=== PATIENT | female | born 1970 | race Caucasian/White ===

== ENCOUNTER 2016-08-22 23:26 | Emergency (ER) | payer BC ==
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
[2016-08-22 23:37] VITALS: BP 137/95; PULSE 82; TEMP 97.7; BMI 43.9
[2016-08-22 23:41] LABS: URINE APPEARANCE Clear; URINE BILIRUBIN Negative (NEGATIVE); URINE BLOOD Negative (NEGATIVE); URINE GLUCOSE (UA) Negative (NEGATIVE); URINE KETONE Negative (NEGATIVE); URINE LEUK ESTERASE Negative (NEGATIVE); URINE NITRITE Negative (NEGATIVE); URINE UROBILINOGEN 0.2 E.U/dl (0.2-1.0)
[2016-08-22 23:42] LABS: URINE COLOR YELLOW; URINE PROTEIN 2+ (NEGATIVE)
[2016-08-22 23:45] LABS: URINE BACTERIA FEW /hpf (NEGATIVE); URINE RBC 0-2 /hpf (0-3); URINE WBC 0-1 (3-5)
[2016-08-23] MEDS ORDERED: KETOROLAC TROMETHAMINE 60 MG/2 ML VIAL ONE (00:40)
[2016-08-23] MEDS ORDERED: KETOROLAC TROMETHAMINE 60 MG/2 ML VIAL IM ONE (00:42)
== END 2016-08-23 00:50 | disposition home or self-care (01) ==
LOC: FER 23:26
DX: S60.221A Contusion of right hand, initial encounter (principal); S80.01XA Contusion of right knee, initial encounter; V43.02XA Car driver injured in collision with other type car in nontraffic accident, initial encounter; Y93.89 Activity, other specified; Y92.410 Unspecified street and highway as the place of occurrence of the external cause; D86.9 Sarcoidosis, unspecified
CPT/HCPCS: 73130-TC-RT; 73562-TC-RT; 81003; 81015; 84703; 99281-25

== ENCOUNTER 2016-09-30 09:20 | Day surgery (SDC) | payer BC ==
[2016-09-29 10:22] VITALS: BMI 43.0
[2016-09-30] MEDS ORDERED: PROPOFOL 20 ML ONE ×2 (11:16)
[2016-09-30 11:57] VITALS: TEMP 97.5
[2016-09-30 12:39] VITALS: BP 112/74; PULSE 78
--- NOTE | 2016-10-03 12:13 | PATH ---
Surgical Pathology Report Patient Name: ANABEL CRAIG [facility]. Rec. #: [id number] /Age/Gender: 1970 (Age: 45) / F Account: [id number] Location: [facility]-ENDOSCOPY Taken: 09/30/2016 Received: 09/30/2016 Reported: 10/03/2016 Physicians: Amanda Hardy M.D. Specimen(s) Received BX RECTAL POLYPS Clinical History History of colon polyps, family history of colon cancer Polyps, diverticulosis Final Diagnosis RECTUM, POLYPS, POLYPECTOMY: HYPERPLASTIC POLYPS. Electronically Signed Charles Orellana M.D. Gross Description Received in formalin, labeled "biopsy rectal polyps" are 7 lawson, irregular portions of soft tissue ranging from 0.1-0.4 cm in greatest dimension. The specimens are submitted in toto in one cassette. 09/30/201609/30/2016
== END 2016-09-30 12:56 | disposition home or self-care (01) ==
LOC: JASU-ENDO 09:20
PROVIDERS: ATTEND Internal Medicine Gastroenterology
PROC: 0DBP8ZX Excision of Rectum, Via Natural or Artificial Opening Endoscopic, Diagnostic (ICD-10-PCS; principal; 2016-09-30 10:30)
DX: Z12.11 Encounter for screening for malignant neoplasm of colon (principal); Z80.0 Family history of malignant neoplasm of digestive organs; K62.1 Rectal polyp; K57.30 Diverticulosis of large intestine without perforation or abscess without bleeding; K64.8 Other hemorrhoids
CPT/HCPCS: 84703; 88305-TC

== ENCOUNTER 2017-06-15 10:52 | Emergency (ER) | payer BC ==
[2017-06-15 10:57] VITALS: BMI 43.7
--- NOTE | 2017-06-15 11:08 | PDOC ---
History of Present Illness <Diamante Morales - Last Filed: 06/15/17 16:06> - History of Present Illness Initial Comments: 06/15/17 11:07 46 yo F with h/o Sarcoidosis and diverticulosis who presents with chest pain . Patient reports left sided chest pain "pulling" pressure sensation of L sided chest with radiation to left shoulder beginning 2-3 days ago with associated exertional SOB. Yesterday developed productive cough with greenish sputum and transient episode of lightheadedness today, which prompted ED visit. Pain worse with deep inhalation. No N/V, fevers/chills, hemoptysis, diaphoresis, jaw pain, neck pain, LOC, weakness, abdominal pain, urinary complaints. Has been using friends albuterol because she ran out this summer. 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 PCP Dr. Cherelle Vail and currently no bag adjuster or treatment of Sarcoidosis. Last seen by Dr. Castellon 3 years ago. No h/o DVT/PE , no calf swelling/tenderness, no OCP, nor recent trauma or surgery within 6 weeks. Denies tobacco, alcohol, or illicit drug use. FHx cardiac disease. Stress test 1 year ago. <Rodney Dimas - Last Filed: 06/15/17 17:11> - General Chief Complaint: Chest Pain Stated Complaint: CHEST PAIN Time Seen by Provider: 06/15/17 11:03 Past History <Diamante Morales - Last Filed: 06/15/17 16:06> - Past Medical History Anemia: No Asthma: Yes (SCARCOIDOSIS) Cancer: No Cardiac Disorders: No CVA: No COPD: No CHF: No Dementia: No Diabetes: No GI Disorders: Yes (GASTRIC ULCERS, GASTRITIS, GERD, IBS, POLYPS) Disorders: No HTN: No Hypercholesterolemia: Yes Liver Disease: No Seizures: Yes Thyroid Disease: No - Surgical History Abdominal Surgery: Yes Cholecystectomy: Yes (LAP) Lung Surgery: Yes (biopsy) - Suicide/Smoking/Psychosocial Hx Smoking Status: No Smoking History: Former smoker Have you smoked in the past 12 months: No Number of Cigarettes Smoked Daily: 0 If you are a former smoker, when did you quit?: 1985 Information on smoking cessation initiated: No Hx Alcohol Use: Yes (RARE) Drug/Substance Use Hx: No Substance Use Type: None Hx Substance Use Treatment: No <Rodney Dimas - Last Filed: 06/15/17 17:11> - Past Medical History Allergies/Adverse Reactions: Allergies Allergy/AdvReac Type Severity Reaction Status Date / Time No Known Allergies Allergy Verified 06/15/17 10:54 Home Medications: Ambulatory Orders Albuterol Sulfate Inhaler - [Ventolin HFA Inhaler -] 1 puff IH PRN 08/22/16 Albuterol 2.5/Ipratropium 0.5 [Duoneb -] 1 amp NEB PRN PRN #1 amp 06/15/17 Azithromycin [Zithromax 250mg Tablets -] 250 mg PO DAILY #4 tab MDD 1 Tab Prednisone [Deltasone -] 40 mg PO DAILY 4 Days #8 tablet MDD 2 Tab 06/15/17 Review of Systems - Review of Systems Comments:: 06/15/17 11:07 GENERAL/CONSTITUTIONAL: No fever or chills. No weakness. HEAD, EYES, EARS, NOSE AND THROAT: No change in vision. No ear pain or discharge. No sore throat.- CARDIOVASCULAR: + cough, chest pain, and shortness of breath RESPIRATORY: + wheezing, or hemoptysis. GASTROINTESTINAL: No nausea, vomiting, diarrhea or constipation. GENITOURINARY: No dysuria, frequency, or change in urination. MUSCULOSKELETAL: No joint or muscle swelling or pain. No neck or back pain. SKIN: No rash NEUROLOGIC: + lightheadedness. No headache, vertigo, loss of consciousness, or change in strength/sensation. ENDOCRINE: No increased thirst. No abnormal weight change HEMATOLOGIC/LYMPHATIC: No anemia, easy bleeding, or history of blood clots. ALLERGIC/IMMUNOLOGIC: No hives or skin allergy. <Yannick Dimasson - Last Filed: 06/15/17 17:11> *Physical Exam - Vital Signs Last Vital Signs Temp Pulse Resp BP Pulse Ox 97.9 F 98 H 18 135/89 98 06/15/17 10:54 06/15/17 12:36 06/15/17 12:36 06/15/17 12:36 06/15/17 12:36 <Diamante Morales - Last Filed: 06/15/17 16:06> - Vital Signs Last Vital Signs Temp Pulse Resp BP Pulse Ox 97.9 F 109 H 19 148/94 98 06/15/17 10:54 06/15/17 10:54 06/15/17 10:54 06/15/17 10:54 06/15/17 10:54 - Physical Exam Comments: 06/15/17 11:08 GENERAL: Awake, alert, and fully oriented, in no acute distress HEAD: No signs of trauma, normocephalic, atraumatic EYES: PERRLA, EOMI, sclera anicteric, conjunctiva clear ENThearing grossly normal, nares patent, oropharynx clear without exudates. Moist mucosa, no supple, no lymphadenopathy, JVD, or masses LUNGS: Diffuse coarse lung sounds BL. Speaks full sentences. No audible wheezing. HEART: Regular rate and rhythm, normal S1 and S2, no murmurs, rubs or gallops, peripheral pulses normal and equal bilaterally. EXTREMITIES : Normal inspection, Normal range of motion, no edema. No clubbing or cyanosis. SKIN: Warm, Dry, normal turgor, no rashes or lesions noted. <Rodney Dimas - Last Filed: 06/15/17 17:11> Heart Score/ECG Review - History History: Slightly suspicious - Electrocardiogram EKG: Normal - Age Age: 45-65 - Risk Factors Risk Factors Heart Score: Yes Hx Hypercholesterolemia, Yes Positive family hx of cardiac disease, Yes Hx Obesity Based on the list above the patient has:: >/=3 risk factors or Hx atherosclerotic disease - Troponin Troponin: </= normal limit - Score Heart Score - Total: 3 - Sidman Sidman: Normal - ST and T Early Repolarization: No Non Specific ST-T Wave changes: No Flattened T Waves: No Prolonged Q-T Interval: No - ECG Impressions Normal ECG: Yes Non-specific ST Elevation: No Ischemic Changes: No Tachycardia: Sinus <Rodney Dimas - Last Filed: 06/15/17 17:11> ED Treatment Course - LABORATORY CBC & Chemistry Diagram: 06/15/17 11:30 06/15/17 11:30 - ADDITIONAL ORDERS Additional order review: Laboratory Results 06/15/17 06/15/17 06/15/17 14:10 12:00 12:00 Sodium Potassium Chloride Carbon Dioxide Anion Gap BUN Creatinine Creat Clearance w eGFR Random Glucose Calcium Total Bilirubin AST ALT Alkaline Phosphatase Creatine Kinase Troponin I Cancelled B-Natriuretic Peptide Total Protein Albumin Urine Color Yellow Urine Appearance Slcloudy Urine pH 5.0 Ur Specific [place] 1.029 Urine Protein Negative Urine Glucose (UA) 3+ H Urine Ketones Negative Urine Blood Negative Urine Nitrite Negative Urine Bilirubin Negative Urine Urobilinogen Negative Urine HCG, Qual Negative 06/15/17 11:30 Sodium 139 Potassium 3.8 Chloride 105 Carbon Dioxide 24 Anion Gap 10 BUN 9 D Creatinine 1.0 D Creat Clearance w eGFR 59.43 Random Glucose 276 H D Calcium 8.6 Total Bilirubin 0.5 D AST 14 L D ALT 30 D Alkaline Phosphatase 93 D Creatine Kinase 38 Troponin I < 0.02 B-Natriuretic Peptide 78.91 Total Protein 7.2 Albumin 3.5 Urine Color Urine Appearance Urine pH Ur Specific [place] Urine Protein Urine Glucose (UA) Urine Ketones Urine Blood Urine Nitrite Urine Bilirubin Urine Urobilinogen Urine HCG, Qual 06/15/17 11:30 RBC 4.93 MCV 87.1 MCHC 32.3 RDW 14.2 MPV 7.3 L Neutrophils % 63.4 Lymphocytes % 25.6 D Monocytes % 7.1 Eosinophils % 2.7 D Basophils % 1.2 - Medications Given in the ED: ED Medications Discontinued Medications Generic Name Dose Route Start Last Admin Trade Name Freq PRN Reason Stop Dose Admin Albuterol/Ipratropium 1 amp 06/15/17 11:30 06/15/17 13:33 Duoneb - NEB 06/15/17 12:16 1 amp Q15M STEVEN Administration Azithromycin 500 mg 06/15/17 15:54 06/15/17 16:02 Zithromax - PO 06/15/17 15:55 500 mg ONCE ONE Administration Prednisone 60 mg 06/15/17 13:23 06/15/17 13:48 Deltasone - PO 06/15/17 13:24 60 mg ONCE ONE Administration <Diamante Morales - Last Filed: 06/15/17 16:06> - LABORATORY CBC & Chemistry Diagram: 06/15/17 11:30 06/15/17 11:30 <Rodney Dimas - Last Filed: 06/15/17 17:11> Medical Decision Making - Medical Decision Making 06/15/17 11:13 46 yo F with h/o Sarcoidosis and diverticulosis who presents with 2-3 days of left sided chest "pulling" pressure sensation w/ radiation to left shoulder, exertional SOB, and 1 day of greenish productive cough. Pain pleuritic and aggravated with deep inhalation. No N/V, fevers/chills, hemoptysis, diaphoresis , jaw pain, neck pain. Physical exam with tachycardia P 109, and coarse lung sounds throughout. 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 Denies tobacco, alcohol , or illicit drug use. Symptoms likely 2/2 asthma vs. bronchitis vs. pneumonia vs. sarcoidosis. Low suspicion for PE given low risk criteria. ACS/VT r/o. ED Course: CBC, CMP, Trop, BNP, UA CXR EKG: Sinus tachycardia with absent TWAN, STD, or t wave inversion. Wells Score PE 1.5 Low risk. PE unlikely with 1.3 % chance of PE. 06/15/17 11:44 Duoneb Treatment. 06/15/17 12:28 CBC: Unremarkable Glucose: 276 Trop: Neg 06/15/17 12:40 CXR: No acute cardiopulmonary pathology UA: Neg 06/15/17 13:30 Pt. stable and discussed lab results with return precautions. D/c with PO Prednisone 40 mg x 4 day. Advised to f/u with Dr. Vail in 1 week. 06/15/17 15:[address] Gore and agrees with plan. 06/15/17 17:09 Repeat cardiac labs normal. <Rodney Dimas - Last Filed: 06/15/17 17:11> *DC/Admit/Observation/Transfer <Diamante Morales - Last Filed: 06/15/17 16:06> - Discharge Dispostion Admit: No - Attestations Physician Attestion: 06/15/17 13:30 I attest to the information provided in this note. <Rodney Dimas - Last Filed: 06/15/17 17:11> Diagnosis at time of Disposition: Asthma attack Qualifiers: Asthma severity: mild Asthma persistence: intermittent Qualified Code(s): J45.21 - Mild intermittent asthma with (acute) exacerbation - Discharge Dispostion Disposition: HOME Condition at time of disposition: Stable - Prescriptions Prescriptions: Albuterol 2.5/Ipratropium 0.5 [Duoneb -] 1 amp NEB PRN PRN #1 amp PRN Reason: Asthma Azithromycin [Zithromax 250mg Tablets -] 250 mg PO DAILY #4 tab MDD 1 Tab Prednisone [Deltasone -] 40 mg PO DAILY 4 Days #8 tablet MDD 2 Tab - Referrals Referrals: Cherelle Vail MD [Primary Care Provider] - John Hugo MD [Staff Physician] - - Patient Instructions Printed Discharge Instructions: DI for Atypical Chest Pain Additional Instructions: Please return to the emergency department if you experience any new or worsening concerns or symptoms. Please take Prednsione 40 mg daily for 4 days. Please take Albuterol/Iipatropium as needed. Take Azithromyicn once daily for 4 days. Please follow up with Dr. Vail within the following week. Please follow up with Pulmonology this week.
[2017-06-15 11:52] LABS: BASOPHIL 1.2 % (0-2.0); EOSINOPHIL 2.7 % (0-4.5); MCH 28.2 pg (25.7-33.7); MCHC 32.3 g/dl (32.0-36.0); MEAN CELL VOLUME 87.1 fl (80-96); MEAN PLT VOLUME 7.3 fl (7.5-11.1); NEUTROPHILS 63.4 % (42.8-82.8); PLATELET COUNT 301 K/MM3 (134-434); RDW 14.2 % (11.6-15.6); WHITE BLOOD COUNT 7.8 K/mm3 (4.0-10.0)
[2017-06-15] MEDS: ALBUTEROL SO4 2.5/IPRATROPIUM 0.5 INH SOL 3 ML VIAL.NEB. NEB SCH ×3 (12:04→13:33)
[2017-06-15 12:06] LABS: ALBUMIN 3.5 g/dl (3.4-5.0); ANION GAP 10 (8-16); BILIRUBIN,TOTAL 0.5 mg/dL (0.2-1.0); CALCIUM 8.6 mg/dL (8.5-10.1); CO2 24 mmol/L (21-32); GLUCOSE,RANDOM 276 mg/dL (74-106); SGOT/AST 14 U/L (15-37); TOT PROT 7.2 g/dl (6.4-8.2)
[2017-06-15 12:09] LABS: ALK PHOS 93 U/L (45-117); CPK 38 IU/L (26-192); TROPONIN I < 0.02 ng/ml (0.00-0.05)
[2017-06-15 12:10] LABS: URINE APPEARANCE SLCLOUDY; URINE BILIRUBIN NEGATIVE (NEGATIVE); URINE BLOOD NEGATIVE (NEGATIVE); URINE COLOR YELLOW; URINE GLUCOSE (UA) 3+ (NEGATIVE); URINE KETONE NEGATIVE (NEGATIVE); URINE NITRITE NEGATIVE (NEGATIVE); URINE PROTEIN NEGATIVE (NEGATIVE); URINE UROBILINOGEN NEGATIVE mg/dL (0.2-1.0)
[2017-06-15 12:12] LABS: SGPT/ALT 30 U/L (12-78)
--- NOTE | 2017-06-15 12:24 | EKG ---
Test Reason : Blood Pressure : / mmHG Vent. Rate : 103 BPM Atrial Rate : 103 BPM P-R Int : 120 ms QRS Dur : 074 ms QT Int : 358 ms P-R-T Axes : 033 032 021 degrees QTc Int : 468 ms SINUS TACHYCARDIA CANNOT RULE OUT ANTERIOR INFARCT , AGE UNDETERMINED ABNORMAL ECG WHEN COMPARED WITH ECG OF 17-OCT-2013 14:12, NONSPECIFIC T WAVE ABNORMALITY NOW EVIDENT IN LATERAL LEADS Confirmed by ADDISON QUINONES MD ([id number]) on 06/15/2017 12:23:40 PM Referred By: Confirmed By:ADDISON QUINONES MD
[2017-06-15] MEDS ORDERED: predniSONE 20 MG TABLET (UD) PO ONE (13:23)
[2017-06-15] MEDS ORDERED: predniSONE 20 MG TABLET (UD) ONE (13:44)
--- NOTE | 2017-06-15 13:57 | PDOC ---
Attending Attestation - Resident Resident Name: Rodney Dimas - ED Attending Attestation I have performed the following: I have examined & evaluated the patient, The case was reviewed & discussed with the resident (on), I agree w/resident's findings & plan, Exceptions are as noted - HPI HPI: 06/15/17 13:57 46-year-old female with a history of asthma and sarcoidosis here today complaining of cough congestion as well as left-sided chest pain . Patient states cough is productive of yellow phlegm. Has been using albuterol inhaler with some relief of the chest tightness as well as of her cough. Denies any history of prior blood clots. Is not currently on any steroids. No fever or chills, no calf pain or leg edema. Patient is out of albuterol has been using her friend's medication. - Physicial Exam PE: 06/15/17 13:58 Awake alert no acute distress. Lung exam with rhonchorous breath sounds bilateral bases. Normal effort. Cardiac no murmurs rubs or gallops normal rate. Abdomen is soft and nontender. Extremities are warm well perfused no edema. Neuro alert and oriented 3. - Medical Decision Making 06/15/17 13:59 46-year-old femaleWith asthma and sarcoid here with cough congestion and chest pain. More respiratory related. We'll treat with nebulizer, steroids, EKG. Will add cardiac enzymes to rule out ACS. On further history taking patient does have a family history of heart disease, has had a normal stress test one and half years ago. Chest x-ray to rule out pneumonia and reassessed. Due to recent negative stress test patient will likely require a 4 hour repeat cardiac enzyme and if negative DC home with albuterol, steroids, and antibiotics.
[2017-06-15] MEDS ORDERED: AZITHROMYCIN 250 MG TABLET PO ONE (15:54)
[2017-06-15 15:55] LABS: CPK 37 IU/L (26-192); TROPONIN I < 0.02 ng/ml (0.00-0.05)
[2017-06-15] MEDS ORDERED: AZITHROMYCIN 500 MG TABLET ONE (16:02)
[2017-06-15 16:09] VITALS: BP 129/84; PULSE 89; TEMP 98.2
[2017-06-15 17:08] LABS: URINE LEUK ESTERASE Negative (NEGATIVE)
== END 2017-06-15 17:29 | disposition home or self-care (01) ==
LOC: JER 10:52
PROC: 3E0F7GC Introduction of Other Therapeutic Substance into Respiratory Tract, Via Natural or Artificial Opening (ICD-10-PCS; principal; 2017-06-15)
DX: J45.21 Mild intermittent asthma with (acute) exacerbation (principal); E78.00 Pure hypercholesterolemia, unspecified; Z86.69 Personal history of other diseases of the nervous system and sense organs; Z87.19 Personal history of other diseases of the digestive system
CPT/HCPCS: 36415; 71010-TC; 80053; 81003; 82550; 83880; 84484; 84703; 85025; 93005; 93010; 99282-25

== ENCOUNTER 2017-11-15 10:57 | Emergency (ER) | payer OTHER, BC ==
[2017-11-15 11:06] VITALS: BP 116/64; PULSE 97; TEMP 98.7; BMI 44.6
[2017-11-15] MEDS ORDERED: IBUPROFEN 400 MG TABLET (FP) PO ONE ×2 (11:29→11:30)
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
[2017-11-15] MEDS ORDERED: predniSONE 20 MG TABLET (UD) PO ONE (11:38)
[2017-11-15] MEDS ORDERED: predniSONE 20 MG TABLET (UD) ONE (11:39)
== END 2017-11-15 11:57 | disposition home or self-care (01) ==
LOC: JERFT 10:57
DX: J45.901 Unspecified asthma with (acute) exacerbation (principal); X58.XXXA Exposure to other specified factors, initial encounter; Y93.89 Activity, other specified; Y92.219 Unspecified school as the place of occurrence of the external cause; Y99.0 Civilian activity done for income or pay; E78.00 Pure hypercholesterolemia, unspecified; Z87.891 Personal history of nicotine dependence
CPT/HCPCS: 99281-25

== ENCOUNTER 2017-12-04 19:11 | Emergency (ER) | payer BC, OTHER ==
--- NOTE | 2017-12-04 19:17 | PDOC ---
Rapid Medical Evaluation Time Seen by Provider: 12/04/17 19:15 Medical Evaluation: Allergies Allergy/AdvReac Type Severity Reaction Status Date / Time No Known Allergies Allergy Verified 11/15/17 11:01 I have performed a brief in-person evaluation of this patient. The patient presents with a chief complaint of: atraumatic left hip pain x 2 weeks Pertinent physical exam findings: pain with palpation of left greater trochanter. has taken 400mg of advil every 3 hours with little relief. I have ordered the following: xray left hip The patient will proceed to the ED for further evaluation.
[2017-12-04 19:20] VITALS: BP 106/80; PULSE 93; TEMP 97.8; BMI 42.4
--- NOTE | 2017-12-04 20:55 | PDOC ---
History of Present Illness - General Chief Complaint: Pain Stated Complaint: PAIN Time Seen by Provider: 12/04/17 19:15 History Source: Patient - History of Present Illness Initial Comments: 47-year-old female presents for evaluation of atraumatic left hip pain 2 weeks. She describes the pain as sharp exacerbated with activity and motion of the left hip believe with rest and free of radiation. 12/04/17 20:50 Past History - Past Medical History Allergies/Adverse Reactions: Allergies Allergy/AdvReac Type Severity Reaction Status Date / Time No Known Allergies Allergy Verified 12/04/17 19:16 Home Medications: Ambulatory Orders Atorvastatin Ca [Lipitor] 20 mg PO HS 11/15/17 Dapagliflozin Propanediol [Farxiga] 10 mg PO DAILY 11/15/17 Glimepiride [Amaryl -] 12 mg PO DAILY 11/15/17 Icosapent Ethyl [Vascepa] 2 gm PO BID 11/15/17 Metformin HCl [Glucophage] 1,000 mg PO BID 11/15/17 Prednisone [Deltasone] 40 mg PO DAILY #8 tablet 11/15/17 Anemia: No Asthma: Yes (SCARCOIDOSIS) Cancer: No Cardiac Disorders: No CVA: No COPD: No CHF: No Dementia: No Diabetes: No GI Disorders: Yes (GASTRIC ULCERS, GASTRITIS, GERD, IBS, POLYPS) Disorders: No HTN: No Hypercholesterolemia: Yes Liver Disease: No Seizures: Yes Thyroid Disease: No - Surgical History Abdominal Surgery: Yes Cholecystectomy: Yes (LAP) Lung Surgery: Yes (biopsy) - Suicide/Smoking/Psychosocial Hx Smoking Status: No Smoking History: Former smoker Have you smoked in the past 12 months: No Number of Cigarettes Smoked Daily: 0 If you are a former smoker, when did you quit?: 1985 Information on smoking cessation initiated: No Hx Alcohol Use: No Drug/Substance Use Hx: No Substance Use Type: None Hx Substance Use Treatment: No Review of Systems - Review of Systems Able to Perform ROS?: Yes Is the patient limited Bulgarian proficient: No Constitutional: Yes: See HPI *Physical Exam - Vital Signs Last Vital Signs Temp Pulse Resp BP Pulse Ox 97.8 F 93 H 18 106/80 98 12/04/17 19:17 12/04/17 19:17 12/04/17 19:17 12/04/17 19:17 12/04/17 19:17 - Physical Exam Comments: Left hip skin color and temperature are normal. There is tenderness about the area of the greater trochanter. There is full range of motion with groin pain. Straight leg raise test is negative. She has 5 out of 5 strength in bilateral lower extremities. The thighs and calves are soft and nontender. She has no focal sensory or motor deficits. 12/04/17 20:51 Medical Decision Making - Medical Decision Making 12/04/17 20:52 left hip andpelvic x-rays show no evidence of fracture trauma or destructive process. There is a small ossific density about the area of the superior acetabulum on the left. Of note she has her own private orthopedic surgeon she will follow up with Dr. Ragland 12/04/17 20:55 *DC/Admit/Observation/Transfer Diagnosis at time of Disposition: Bursitis of left hip, Osteoarthritis of left hip - Discharge Dispostion Disposition: HOME Condition at time of disposition: Stable Admit: No - Referrals Referrals: Cherelle Vail MD [Primary Care Provider] - - Patient Instructions Printed Discharge Instructions: DI for Hip Bursitis, Bursitis, Osteoarthritis, DI for Osteoarthritis - Post Discharge Activity
== END 2017-12-04 20:57 | disposition home or self-care (01) ==
LOC: JERFT 19:11
DX: M16.12 Unilateral primary osteoarthritis, left hip (principal); M70.62 Trochanteric bursitis, left hip; G40.909 Epilepsy, unspecified, not intractable, without status epilepticus; E78.00 Pure hypercholesterolemia, unspecified; Z87.19 Personal history of other diseases of the digestive system
CPT/HCPCS: 73523-TC-FY; 99281-25

== ENCOUNTER 2018-03-20 06:09 | Day surgery (SDC) | payer BC ==
[2018-03-19 09:48] VITALS: BMI 42.9
[2018-03-20] MEDS ORDERED: DESFLURANE GAS 240 ML BOTTLE IH ONE (07:32)
[2018-03-20] MEDS ORDERED: MIDAZOLAM HCL 2 MG/2 ML SINGLE DOSE VIAL ONE (07:35)
[2018-03-20] MEDS ORDERED: metroNIDAZOLE 0.75% VAGINAL GEL 70 GM TUBE ONE (07:35)
[2018-03-20] MEDS ORDERED: BUPIVACAINE HCL/PF 0.5% (5MG/ML) 10 ML VIAL ONE (07:36)
[2018-03-20] MEDS ORDERED: PROPOFOL 20 ML ONE (07:45)
[2018-03-20] MEDS ORDERED: ROCURONIUM BROMIDE 50 MG/5 ML VIAL ONE (07:46)
[2018-03-20] MEDS ORDERED: fentaNYL CITRATE 250 MCG/5 ML VIAL ONE (07:46)
[2018-03-20] MEDS ORDERED: SUCCINYLCHOLINE CHLORIDE 200 MG/10 ML VIAL ONE (07:46)
[2018-03-20] MEDS ORDERED: ceFAZolin SODIUM 1 GM VIAL IVPB ONE (08:00)
--- NOTE | 2018-03-20 08:35 | OP ---
Operative Note - Note: Operative Date: 03/20/18 Pre-Operative Diagnosis: stress incontinence Operation: cysto/suburethral sling Findings: same Post-Operative Diagnosis: Same as Pre-op Surgeon: Jovi Limon Anesthesia: General Estimated Blood Loss (mls): 20 Drains & Tubes with Location: 16fr jain Operative Report Dictated: Yes
[2018-03-20] MEDS ORDERED: ELECTROLYTE-148 SOLN 1,000 ML IV SCH ×2 (08:45→14:15)
[2018-03-20] MEDS ORDERED: oxyCODONE HCL 5 MG TABLET PO PRN ×2 (09:01→14:23)
[2018-03-20] MEDS ORDERED: PROMETHAZINE HCL 25 MG/1 ML VIAL IVPUSH PRN (09:01)
[2018-03-20] MEDS ORDERED: LACTATED RINGERS SOLUTION 1,000 ML IV SCH (09:15)
--- NOTE | 2018-03-20 09:25 | OP ---
DATE OF OPERATION: 03/20/2018 PREOPERATIVE DIAGNOSIS: Stress urinary incontinence. POSTOPERATIVE DIAGNOSIS: Stress urinary incontinence. PROCEDURE: Cystoscopy, suburethral sling procedure. SURGEON: Broderick Peguero MD INDICATION: Patient is a 47-year-old female with stress urinary incontinence, rectocele, and cystocele, who after reviewed treatment options, elected to undergo suburethral sling repair by myself and cystocele and rectocele repair by Dr. Ornelas. Risks, benefits, and alternatives were discussed in detail. After informed consent was obtained, patient was taken to the OR and placed supine on the operating table. After cardiac monitoring had been administered, general anesthesia was established. She was given 2 g of Ancef, and she was prepped and draped in dorsal lithotomy position. Pitressin was injected in the suburethral space in the level of the mid-urethra, and then, a mid-urethral incision was created approximately 2 cm in length. Then, the vaginal epithelium was dissected from the periurethral tissue, and this was dissected on the urethra and then going laterally until the obturator fossa was felt bilaterally. At this point then, attention was turned to placing the sling. First, the trocar for the patient's left side was placed. The trocar was attached to the anchor and then advanced until the obturator membrane was felt. It was passed through the obturator membrane with a quarter turn and then the trocar removed. A gentle tug on the sling indicated the anchor was in place. In a similar fashion, a separate trocar was placed for the patient's right side. Obturator membrane was identified, pieced with the trocar, and then, with a quarter turn to secure the anchor, and then, the trocar was removed. A gentle tug again on the anchor revealed the to be in good position. A right angle clamp was placed between the urethra and the sling, and this indicated no tension. At this point, the excess suture material was excised, and attention was turned to wound closure. The vaginal epithelium was reapproximated with a running 2-0 Vicryl suture. At the end of the procedure, the Oliveira was removed, and cystoscopy was performed. There was no evidence of any bladder or urethral injury. Bilateral ureteral orifices were seen in their normal anatomic position with good efflux. At this point, then Dr. Ornelas took over to do the planned cystocele and rectocele repair, and this will be dictated separately. Estimated blood loss for my part of the procedure was 20 mL. BRODERICK PEGUERO M.D. [id number]
[2018-03-20] MEDS: ONDANSETRON 4 MG/2 ML VIAL IVPUSH PRN ×2 (11:25→18:00)
[2018-03-20] MEDS: oxyCODONE HCL 5 MG TABLET PO PRN ×2 (11:25→12:45)
--- NOTE | 2018-03-20 12:02 | OP ---
DATE OF OPERATION: 03/20/2018 PREOPERATIVE DIAGNOSES: Urinary stress incontinence and cystocele and rectocele. POSTOPERATIVE DIAGNOSES: Urinary stress incontinence and cystocele and rectocele. PROCEDURE: Cystoscopy, suburethral sling procedure which was done by Dr. Jovi Limon, and cystocele and rectocele repair done by Dr. Ornelas. DESCRIPTION OF OPERATION: Patient was taken to the operating room and adequate general anesthesia induced, ___dorsal__ lithotomy position. After suburethral sling procedure, which was done by Dr. Limon and cystoscopy, I started repair of the cystocele and rectocele, first the cystocele. The anterior vaginal mucosa was infiltrated with 5 mL of vasopressin, and then, vaginal mucosa was excised at the midline and then undermined with a Metzenbaum scissor. Bladder was from the vaginal mucosa. At this time, with sharp and blunt dissection, the bladder was further dissected from the vaginal mucosa. Then, cystocele was repaired with a pursestring suture of a 3-0 Vicryl. Then, several mattress sutures of 3-0 Vicryl interrupted suture were placed over the bladder and plicated. Cystocele completely reduced. Then, excess vaginal mucosa was cut, and then, vaginal mucosa was brought together with interrupted suture of 3-0 Vicryl. Then, posterior repair started by infiltrating the posterior perineal skin and posterior vaginal mucosa with vasopressin. Then, the posterior vaginal mucosa was incised in the midline, and then, excess posterior vaginal mucosa was trimmed with Metzenbaum scissor. Then, rectum was dissected from the vaginal mucosa with blunt and sharp dissection with Metzenbaum scissor. Then, rectocele was repaired and plicated with interrupted suture of 3-0 Vicryl. Then, excess mucosa was cut, and muscles were brought together with interrupted suture of 0 Vicryl. Then, posterior vaginal mucosa and perineum were repaired in episiotomy-like fashion with 2-0 Vicryl and 3-0 Vicryl interrupted for the skin. Then, rectum was checked and no suture felt, no defect. Oliveira catheter was placed, and there was clear urine. Then, no active bleeding was seen. The vagina was packed with Iodoform gauze. Patient tolerated the procedure well, left the OR in good condition. INDU ORNELAS M.D. [id number] MTDD
[2018-03-20] MEDS ORDERED: oxyCODONE HCL 5 MG TABLET ONE (12:43)
[2018-03-20] MEDS: CEFAZOLIN 2 GM/D5W 2 GM/50 ML ML IVPB SCH ×2 (15:00→23:19)
[2018-03-20] MEDS ORDERED: ACETAMINOPHEN 325 MG TABLET (FP) ONE (16:30)
[2018-03-20] MEDS ORDERED: ONDANSETRON 4 MG/2 ML VIAL ONE (17:48)
[2018-03-20] MEDS ORDERED: ACETAMINOPHEN 325 MG TABLET (FP) PO ONE (18:30)
[2018-03-20] MEDS: metFORMIN HCL 500 MG TABLET (FP) PO SCH (18:43)
[2018-03-20] MEDS: OMEGA-3 ACID ETHYL ESTERS (FATTY-ACIDS) 1 GM CAPSULE (FP) PO SCH (21:52)
[2018-03-20] MEDS ORDERED: ATORVASTATIN CA 20 MG TABLET (FP) PO SCH (22:00)
[2018-03-21] MEDS ORDERED: PT OWN MED DRAWER 7, Y5N ONE (06:03)
[2018-03-21] MEDS: metFORMIN HCL 500 MG TABLET (FP) PO SCH (06:14)
[2018-03-21] MEDS: CEFAZOLIN 2 GM/D5W 2 GM/50 ML ML IVPB SCH (06:14)
[2018-03-21] MEDS ORDERED: FARXIGA 5 MG PO SCH (07:00)
[2018-03-21] MEDS ORDERED: GLIMEPIRIDE 2 MG TABLET (FP) PO SCH (07:00)
[2018-03-21] MEDS ORDERED: [UNRECOGNIZED DRUG - OTHER] PO SCH (10:00)
[2018-03-21 10:02] VITALS: BP 129/71; PULSE 88; TEMP 98.4
[2018-03-21] MEDS: OMEGA-3 ACID ETHYL ESTERS (FATTY-ACIDS) 1 GM CAPSULE (FP) PO SCH (10:21)
--- NOTE | 2018-03-21 15:01 | PATH ---
Surgical Pathology Report Patient Name: ANABEL CRAIG [facility]. Rec. #: [id number] /Age/Gender: 1970 (Age: 47) / F Account: [id number] Location: [facility] SURGICAL Taken: 03/20/2018 Received: 03/20/2018 Reported: 03/21/2018 Physicians: Berenice Erazo M.D. Specimen(s) Received ANTERIOR AND POSTERIOR VAGINAL MUCOSA Clinical History Cystocele, urinary incontinence, rectocele Final Diagnosis VAGINAL MUCOSA, ANTERIOR AND POSTERIOR, EXCISION: VAGINAL SQUAMOUS MUCOSA WITHOUT SIGNIFICANT PATHOLOGIC FINDINGS. Electronically Signed Natasha Womack M.D. Gross Description Received in formalin labeled "anterior and posterior vaginal mucosa," are 2 lawson portions of mucosal tissue measuring 0.9 x 0.5 x 0.3 cm and 1.1 x 0.6 x 0.3 cm. The specimens are submitted in toto in one cassette. 03/21/2018 [facility]03/21/2018
== END 2018-03-21 10:44 | disposition home or self-care (01) ==
LOC: JASU-SURG 06:09 → J6S 17:55 → JASU-SURG 03-21 10:44
PROVIDERS: ATTEND Obstetrics & Gynecology
PROC: 0TSD0ZZ Reposition Urethra, Open Approach (ICD-10-PCS; 2018-03-20)
PROC: 0TJB8ZZ Inspection of Bladder, Via Natural or Artificial Opening Endoscopic (ICD-10-PCS; 2018-03-20)
PROC: 0JQC0ZZ Repair Pelvic Region Subcutaneous Tissue and Fascia, Open Approach (ICD-10-PCS; principal; 2018-03-20 07:30)
PROC: 0JQC0ZZ Repair Pelvic Region Subcutaneous Tissue and Fascia, Open Approach (ICD-10-PCS; 2018-03-20 07:30)
DX: N81.10 Cystocele, unspecified (principal); N81.6 Rectocele; N39.3 Stress incontinence (female) (male)
CPT/HCPCS: 82962; 84703; 88302-TC; 94760

== ENCOUNTER 2018-04-02 18:40 | Emergency (ER) | payer BC ==
[2018-04-02 18:46] VITALS: BMI 41.5
--- NOTE | 2018-04-02 20:47 | PDOC ---
History of Present Illness - General History Source: Patient Exam Limitations: No Limitations - History of Present Illness Initial Comments: 04/02/18 21:13 The patient is a 47 year old female, with a significant past medical history of borderline DM, HLD, Sarcoidosis, gastric ulcers, gastritis, GERD, IBS, and diverticulosis, who presents to the emergency department with, abdominal cramping and vaginal soreness. The patient recently had cysto/suburethral sling surgery by Dr. Jovi Limon on 03/20. She was told to follow up with Dr. Limon in 3 weeks. She reports that 5 days ago she experienced fevers and vomiting. Today, she notes suprapubic discomfort thus prompted her to observe her surgical site. Upon this, she observed a suture and white dots, prompting her visit to the ED. She denies recent dizziness. She denies recent diarrhea or constipation. She denies recent dysuria, frequency, urgency or hematuria. She denies recent chest pain or shortness of breath. Allergies: NKA Surgical history: (2004), Cholecystectomy (1997), Tonsillectomy (1974) , Lung biopsy (2002) Social history: Former smoker (Quit 1985). Rare alcohol usage. Denies recreational drug use. Primary Care Physician: Dr. Cherelle Vail <Mk Wise - Last Filed: 04/02/18 21:13> <Mahogany Dhillon - Last Filed: 04/02/18 22:14> - General Chief Complaint: Pain Stated Complaint: INFECTION Time Seen by Provider: 04/02/18 19:28 Past History <Mk Wise - Last Filed: 04/02/18 21:13> - Past Medical History Anemia: No Asthma: Yes (SCARCOIDOSIS) Cancer: No Cardiac Disorders: No CVA: No COPD: No CHF: No DVT: No Dementia: No Diabetes: Yes (NIDDM) GI Disorders: Yes (GASTRIC ULCERS, GASTRITIS, GERD, IBS, POLYPS) Disorders: No HTN: No Hypercholesterolemia: Yes Liver Disease: No Seizures: Yes (NO SEIZURE X 8 yrs ago) Thyroid Disease: No - Surgical History Abdominal Surgery: Yes (tubal ligation) Appendectomy: No Cardiac Surgery: No Cholecystectomy: Yes (LAP) Lung Surgery: Yes (biopsy) Neurologic Surgery: No Orthopedic Surgery: No - Suicide/Smoking/Psychosocial Hx Smoking Status: No Smoking History: Former smoker Have you smoked in the past 12 months: No Number of Cigarettes Smoked Daily: 0 If you are a former smoker, when did you quit?: 1985 Information on smoking cessation initiated: No Hx Alcohol Use: No Drug/Substance Use Hx: No Substance Use Type: None Hx Substance Use Treatment: No <Mahogany Dhillon Roula - Last Filed: 04/02/18 22:14> - Past Medical History Allergies/Adverse Reactions: Allergies Allergy/AdvReac Type Severity Reaction Status Date / Time No Known Allergies Allergy Verified 04/02/18 18:41 Home Medications: Ambulatory Orders Atorvastatin Ca [Lipitor] 20 mg PO HS 11/15/17 Dapagliflozin Propanediol [Farxiga] 5 mg PO DAILY 11/15/17 Glimepiride [Amaryl -] 2 mg PO DAILY 11/15/17 Icosapent Ethyl [Vascepa] 2 gm PO BID 11/15/17 Metformin HCl [Glucophage] 1,000 mg PO BID 11/15/17 Fesoterodine Fumarate [Toviaz] 8 mg PO DAILY 03/20/18 Review of Systems - Review of Systems Able to Perform ROS?: Yes Comments:: 04/02/18 21:13 CONSTITUTIONAL: Absent: fever, no chills, no fatigue EYES: Absent: visual changes ENT: Absent: ear pain, no sore throat CARDIOVASCULAR: Absent: chest pain, no palpitations RESPIRATORY: Absent: cough, no SOB GI: Present: Suprapubic discomfort. Absent: no nausea, no vomiting, no constipation, no diarrhea GENITOURINARY: Absent: dysuria, no frequency, no hematuria MUSKULOSKELETAL: Absent: back pain, no arthralgia, no myalgia SKIN: Absent: rash NEURO: Absent: headache All Other Systems: Reviewed and Negative <Mk Wise - Last Filed: 04/02/18 21:13> *Physical Exam - Vital Signs Last Vital Signs Temp Pulse Resp BP Pulse Ox 98.0 F 90 18 136/88 100 04/02/18 18:42 04/02/18 18:42 04/02/18 18:42 04/02/18 18:42 04/02/18 18:42 - Physical Exam Comments: 04/02/18 21:14 GENERAL: Well developed, well nourished. Awake and alert. No acute distress. HEENT: Normocephalic, atraumatic. PERRLA, EOMI. No conjunctival pallor. Sclera are non- icteric. Moist mucous membranes. Oropharynx is clear. NECK: Supple. Full ROM. No JVD. Carotid pulses 2+ and symmetric, without bruits. No thyromegaly. No lymphadenopathy. CARDIOVASCULAR: Regular rate and rhythm. No murmurs, rubs, or gallops. Distal pulses are 2+ and symmetric. PULMONARY: No evidence of respiratory distress. Lungs clear to auscultation bilaterally. No wheezing, rales or rhonchi. +ABDOMINAL: Obese. Suprapubic discomfort. Soft. Non-tender. Non-distended. No rebound or guarding. No organomegaly. Normoactive bowel sounds. +EXTERNAL GENITALIA: 1 black suture on the perineum with surrounding fibrin. No purulence, vesicles, or infection noted. Mild erythema. MUSCULOSKELETAL Normal range of motion at all joints. No bony deformities or tenderness. No CVA tenderness. EXTREMITIES: No cyanosis. No clubbing. No edema. No calf tenderness. SKIN: Warm and dry. Normal capillary refill. No rashes. No jaundice. NEUROLOGICAL: Alert, awake, appropriate. Cranial nerves 2-12 intact. No deficits to light touch and temperature in face, upper extremities and lower extremities. No motor deficits in the in face, upper extremities and lower extremities. Normoreflexic in the upper and lower extremities. Normal speech. Toes are down- going bilaterally. Gait is normal without ataxia. PSYCHIATRIC: Cooperative. Good eye contact. Appropriate mood and affect. <Mk Wise - Last Filed: 04/02/18 21:13> - Vital Signs Last Vital Signs Temp Pulse Resp BP Pulse Ox 98.0 F 90 18 136/88 100 04/02/18 18:42 04/02/18 18:42 04/02/18 18:42 04/02/18 18:42 04/02/18 18:42 <Mahogany Dhillon - Last Filed: 04/02/18 22:14> ED Treatment Course - LABORATORY CBC & Chemistry Diagram: 04/02/18 20:54 04/02/18 20:54 - ADDITIONAL ORDERS Additional order review: 04/02/18 20:54 RBC 4.75 MCV 84.4 MCHC 34.0 RDW 15.4 MPV 7.1 L Neutrophils % 51.4 Lymphocytes % 34.1 D Monocytes % 8.6 Eosinophils % 5.0 H D Basophils % 0.9 <Mk Wise - Last Filed: 04/02/18 21:13> - LABORATORY CBC & Chemistry Diagram: 04/02/18 20:54 04/02/18 20:54 <Mahogany Dhillon - Last Filed: 04/02/18 22:14> *DC/Admit/Observation/Transfer - Attestations Scribe Attestion: 04/02/18 21:14 Documentation prepared by Mk Wise, acting as medical staff specialist for Mahogany Dhillon MD. <Mk Wise - Last Filed: 04/02/18 21:13> <Mahogany Dhillon - Last Filed: 04/02/18 22:14> Diagnosis at time of Disposition: Status post surgery, Encounter for post surgical wound check, Pelvic cramping - Discharge Dispostion Disposition: HOME Condition at time of disposition: Stable - Referrals Referrals: Cherelle Vail MD [Primary Care Provider] - - Patient Instructions Printed Discharge Instructions: DI for Pelvic Pain Additional Instructions: please call your urologist if you want to move your appointment date up - Post Discharge Activity
[2018-04-02 21:04] LABS: BASO % 0.9 % (0-2.0); HEMATOCRIT 40.1 % (32.4-45.2); HEMOGLOBIN 13.6 GM/dL (10.7-15.3); LYMPH % 34.1 % (8-40); MCH 28.7 pg (25.7-33.7); MEAN CELL VOLUME 84.4 fl (80-96); MEAN PLT VOLUME 7.1 fl (7.5-11.1); MONO % 8.6 % (3.8-10.2); NEUT % 51.4 % (42.8-82.8); PLATELET COUNT 293 K/MM3 (134-434); RBC 4.75 M/mm3 (3.60-5.2); RDW 15.4 % (11.6-15.6); WHITE BLOOD COUNT 7.8 K/mm3 (4.0-10.0)
[2018-04-02 21:25] LABS: URINE APPEARANCE CLEAR; URINE BILIRUBIN NEGATIVE (<2.0 mg/dL); URINE COLOR LTYELLOW; URINE GLUCOSE (UA) 3+ (NEGATIVE); URINE KETONE NEGATIVE (NEGATIVE); URINE LEUK ESTERASE NEGATIVE (NEGATIVE); URINE NITRITE NEGATIVE (NEGATIVE); URINE PROTEIN NEGATIVE (NEGATIVE); URINE UROBILINOGEN NEGATIVE mg/dL (0.2-1.0)
[2018-04-02 21:46] LABS: ALBUMIN 3.5 g/dl (3.4-5.0); ANION GAP 10 MMOL/L (8-16); BILIRUBIN,TOTAL 0.3 mg/dL (0.2-1.0); BLOOD UREA NITROGEN 8 mg/dL (7-18); CALCIUM 8.8 mg/dL (8.5-10.1); CHLORIDE 106 mmol/L (98-107); CO2 29 mmol/L (21-32); CREATININE 0.7 mg/dL (0.55-1.02); GLUCOSE,RANDOM 258 mg/dL (74-106); POTASSIUM 3.9 mmol/L (3.5-5.1); SGOT/AST 8 U/L (15-37); SGPT/ALT 19 U/L (12-78); SODIUM 145 mmol/L (136-145); TOT PROT 6.9 g/dl (6.4-8.2)
[2018-04-02 21:47] LABS: ALK PHOS 68 U/L (45-117)
[2018-04-02 22:16] VITALS: BP 118/69; PULSE 85; TEMP 98.2
== END 2018-04-02 22:16 | disposition home or self-care (01) ==
LOC: JER 18:40
DX: Z48.01 Encounter for change or removal of surgical wound dressing (principal); Z98.890 Other specified postprocedural states; R10.9 Unspecified abdominal pain
CPT/HCPCS: 36415; 80053; 81003; 85025; 87086; 99283-25

== ENCOUNTER 2022-03-19 23:39 | Emergency (ER) | payer BC ==
[2022-03-20 00:09] VITALS: BP 115/76; PULSE 85; RESP 20; TEMP 97.9; BMI 36.8
[2022-03-20] MEDS ORDERED: IBUPROFEN 200 MG TABLET PO ONE (00:41)
[2022-03-20] MEDS ORDERED: IBUPROFEN 600 MG TABLET (FP) PO ONE (01:53)
== END 2022-03-20 02:28 | disposition home or self-care (01) ==
LOC: JER 23:39
DX: M25.572 Pain in left ankle and joints of left foot (principal)
CPT/HCPCS: 73610-TC-LT-FY; 73630-TC-LT; 99283-25

== ENCOUNTER 2022-03-28 04:25 | Day surgery (SDC) | payer BC ==
[2022-03-24 10:36] VITALS: BMI 37.8
[2022-03-28] MEDS ORDERED: BUPIVACAINE HCL/PF 0.25% (2.5MG/ML) 10 ML VIAL ONE (07:53)
[2022-03-28] MEDS ORDERED: LIDOCAINE HCL/PF 1% SDV 5ML VIAL ONE (07:53)
[2022-03-28] MEDS ORDERED: DEXAMETHASONE SOD PHOSPHATE 10 MG/1 ML VIAL ONE (07:54)
[2022-03-28 10:16] VITALS: RESP 20
[2022-03-28] MEDS ORDERED: MIDAZOLAM HCL 2 MG/2 ML SINGLE DOSE VIAL ONE (11:54)
[2022-03-28] MEDS ORDERED: BUPIVACAINE HCL/PF 0.25% (2.5MG/ML) 10 ML VIAL IJ ONE (12:08)
[2022-03-28] MEDS ORDERED: IOHEXOL 180 MG/1 ML ML IJ ONE (12:10)
[2022-03-28] MEDS ORDERED: DEXAMETHASONE SOD PHOSPHATE 4 MG/1 ML VIAL IM ONE (12:11)
[2022-03-28 14:00] VITALS: BP 120/70; PULSE 68; TEMP 98
== END 2022-03-28 13:15 | disposition home or self-care (01) ==
LOC: JASU-SURG 04:25
PROVIDERS: ATTEND Physical Medicine & Rehabilitation
PROC: 3E0R3BZ Introduction of Anesthetic Agent into Spinal Canal, Percutaneous Approach (ICD-10-PCS; 2022-03-28)
PROC: B01BYZZ Fluoroscopy of Spinal Cord using Other Contrast (ICD-10-PCS; 2022-03-28)
PROC: 3E0R33Z Introduction of Anti-inflammatory into Spinal Canal, Percutaneous Approach (ICD-10-PCS; principal; 2022-03-28 12:30)
DX: M54.16 Radiculopathy, lumbar region (principal); M54.50 Low back pain, unspecified
CPT/HCPCS: 76000-TC-FY; 82962; J1100

== ENCOUNTER 2022-07-18 04:09 | Day surgery (SDC) | payer BC ==
[2022-07-14 13:07] VITALS: BMI 37.8
[2022-07-18 07:17] VITALS: RESP 20
[2022-07-18] MEDS ORDERED: LIDOCAINE HCL 1%, 10 MG/ML (20ML VIAL) ONE (07:17)
[2022-07-18] MEDS ORDERED: DEXAMETHASONE SOD PHOSPHATE 10 MG/1 ML VIAL ONE (07:17)
[2022-07-18] MEDS ORDERED: BUPIVACAINE HCL/PF 0.75% 10 ML VIAL ONE (07:17)
[2022-07-18] MEDS ORDERED: LIDOCAINE HCL/PF 1% SDV 5ML VIAL ONE ×2 (07:21→07:37)
[2022-07-18] MEDS ORDERED: BETAMET ACET/BETAMET NA PH 30 MG/5 ML VIAL ONE (08:24)
[2022-07-18] MEDS ORDERED: LIDOCAINE HCL 2% (20ML MULTI-DOSE VIAL) ONE (09:32)
[2022-07-18] MEDS ORDERED: MIDAZOLAM HCL 2 MG/2 ML SINGLE DOSE VIAL ONE (09:42)
[2022-07-18] MEDS ORDERED: FENTANYL CITRATE/PF 50 MCG/ML VIAL ONE (09:47)
[2022-07-18] MEDS ORDERED: BUPIVACAINE HCL/PF 0.25% (2.5MG/ML) 10 ML VIAL IJ ONE (09:55)
[2022-07-18] MEDS ORDERED: DEXAMETHASONE SOD PHOSPHATE 10 MG/1 ML VIAL IM ONE (09:55)
[2022-07-18] MEDS ORDERED: IOHEXOL 180 MG/1 ML ML IJ ONE (09:55)
[2022-07-18 10:11] VITALS: BP 112/70; PULSE 77; TEMP 97.8
== END 2022-07-18 11:23 | disposition home or self-care (01) ==
LOC: JASU-SURG 04:09
PROVIDERS: ATTEND Physical Medicine & Rehabilitation
PROC: 3E0R3BZ Introduction of Anesthetic Agent into Spinal Canal, Percutaneous Approach (ICD-10-PCS; 2022-07-18)
PROC: B01BYZZ Fluoroscopy of Spinal Cord using Other Contrast (ICD-10-PCS; 2022-07-18)
PROC: 3E0R33Z Introduction of Anti-inflammatory into Spinal Canal, Percutaneous Approach (ICD-10-PCS; principal; 2022-07-18 08:30)
DX: M54.16 Radiculopathy, lumbar region (principal); M54.50 Low back pain, unspecified
CPT/HCPCS: 76000-TC-FY; J1100

== ENCOUNTER 2022-11-10 17:57 | Emergency (ER) | payer BC ==
[2022-11-10 18:20] VITALS: RESP 18; TEMP 98.1; BMI 37.8
[2022-11-10] MEDS ORDERED: LIDOCAINE 5% TOPICAL PATCH TP ONE (18:49)
[2022-11-10] MEDS ORDERED: ACETAMINOPHEN 1000 MG/100 ML BAG IVPB ONE (18:49)
[2022-11-10] MEDS ORDERED: ACETAMINOPHEN INJECTION 100 ML IVPB ONE (19:28)
[2022-11-10] MEDS ORDERED: LIDOCAINE 5% TOPICAL PATCH ONE (19:28)
[2022-11-10 20:39] LABS: BASO % 0.7 % (0-2.0); EOS % 2.9 % (0-4.5); HEMATOCRIT 40.8 % (32.4-45.2); HEMOGLOBIN 13.5 GM/dL (10.7-15.3); MCH 27.7 pg (25.7-33.7); MEAN CELL VOLUME 83.8 fl (80-96); MEAN PLT VOLUME 7.3 fl (7.5-11.1); MONO % 11.5 % (3.8-10.2); NEUT % 49.9 % (42.8-82.8); PLATELET COUNT 295 10^3/uL (134-434); RBC 4.87 M/mm3 (3.60-5.2); RDW 15.6 % (11.6-15.6); URINE APPEARANCE CLEAR; URINE BILIRUBIN NEGATIVE (NEGATIVE); URINE COLOR YELLOW; URINE GLUCOSE (UA) 3+ (NEGATIVE); URINE KETONE TRACE (NEGATIVE); URINE LEUK ESTERASE NEGATIVE (NEGATIVE); URINE NITRITE NEGATIVE (NEGATIVE); URINE PROTEIN NEGATIVE (NEGATIVE); URINE UROBILINOGEN 0.2 mg/dL (0.2-1.0)
[2022-11-10] MEDS ORDERED: KETOROLAC TROMETHAMINE 15 MG/ML VIAL IVPUSH ONE (20:41)
[2022-11-10 20:45] LABS: INR 0.99 (0.83-1.09); PROTHROMBIN TIME (PATIENT) 11.5 SEC (9.7-13.0)
[2022-11-10 20:48] LABS: ACTIVATED PTT 30.5 SECONDS (25.2-36.5)
[2022-11-10] MEDS ORDERED: KETOROLAC TROMETHAMINE 15 MG/ML VIAL ONE (20:57)
[2022-11-10 21:11] LABS: CHLORIDE 107 mmol/L (98-107); SODIUM 140 mmol/L (136-145)
[2022-11-10 21:16] LABS: ALBUMIN 3.9 g/dl (3.4-5.0); ANION GAP 4 MMOL/L (8-16); BLOOD UREA NITROGEN 14.2 mg/dL (7-18); CALCIUM 9.8 mg/dL (8.5-10.1); CO2 28 mmol/L (21-32); GLUCOSE,RANDOM 96 mg/dL (74-106); LIPASE 207 U/L (73-393); MAGNESIUM 2.1 mg/dL (1.8-2.4)
[2022-11-10 21:19] LABS: CREATININE 0.6 mg/dL (0.55-1.3); SGOT/AST 11 U/L (15-37); SGPT/ALT 27 U/L (13-61)
[2022-11-10 21:21] LABS: BILIRUBIN,TOTAL 0.6 mg/dL (0.2-1); TOT PROT 7.4 g/dl (6.4-8.2)
[2022-11-10 21:23] LABS: ALK PHOS 68 U/L (45-117)
[2022-11-10] MEDS ORDERED: morphine CARPU-JECT 4 MG/1 ML DISP.SYRIN IVPUSH ONE (21:40)
[2022-11-10] MEDS ORDERED: morphine SULFATE 4 MG/ML VIAL ONE (21:44)
[2022-11-10] MEDS ORDERED: LIDOCAINE PATCH REMOVAL MC SCH (22:00)
[2022-11-10 22:11] VITALS: BP 110/63; PULSE 60
== END 2022-11-11 00:59 | disposition home or self-care (01) ==
LOC: JER 17:57
PROC: 3E033GC Introduction of Other Therapeutic Substance into Peripheral Vein, Percutaneous Approach (ICD-10-PCS; principal; 2022-11-10)
DX: R07.89 Other chest pain (principal); R07.81 Pleurodynia
CPT/HCPCS: 36415; 71101-TC-RT-FY; 71275-TC; 80053; 81003; 82550; 83690; 83735; 84484; 85025; 85610; 85730; 87086; 93005; 93010; 99285-25; Q9967

== ENCOUNTER 2022-11-12 10:52 | Emergency (ER) | payer BC ==
[2022-11-12 11:11] VITALS: RESP 18; TEMP 98.4; BMI 37.8
[2022-11-12] MEDS ORDERED: diazePAM 2 MG TABLET PO ONE (12:02)
[2022-11-12] MEDS ORDERED: KETOROLAC TROMETHAMINE 15 MG/ML VIAL IVPUSH ONE ×2 (12:02→15:10)
[2022-11-12] MEDS ORDERED: diazePAM 2 MG TABLET ONE (12:06)
[2022-11-12] MEDS ORDERED: KETOROLAC TROMETHAMINE 15 MG/ML VIAL ONE ×2 (12:06→16:32)
[2022-11-12 12:31] LABS: BASO % 0.6 % (0-2.0); EOS % 2.9 % (0-4.5); HEMATOCRIT 39.6 % (32.4-45.2); HEMOGLOBIN 13.4 GM/dL (10.7-15.3); LYMPH % 11.9 % (8-40); MCH 28.2 pg (25.7-33.7); MCHC 33.7 g/dl (32.0-36.0); MEAN CELL VOLUME 83.5 fl (80-96); MEAN PLT VOLUME 6.8 fl (7.5-11.1); MONO % 7.7 % (3.8-10.2); NEUT % 76.9 % (42.8-82.8); PLATELET COUNT 248 10^3/uL (134-434); RBC 4.74 M/mm3 (3.60-5.2); RDW 15.2 % (11.6-15.6); WHITE BLOOD COUNT 7.2 K/mm3 (4.0-10.0)
[2022-11-12 13:00] LABS: CALCIUM 9.2 mg/dL (8.5-10.1)
[2022-11-12 13:01] LABS: ALBUMIN 3.5 g/dl (3.4-5.0)
[2022-11-12 13:04] LABS: CREATININE 0.6 mg/dL (0.55-1.3)
[2022-11-12 13:05] LABS: BILIRUBIN,TOTAL 0.4 mg/dL (0.2-1)
[2022-11-12] MEDS ORDERED: morphine CARPU-JECT 4 MG/1 ML DISP.SYRIN IVPUSH ONE (18:30)
[2022-11-12] MEDS ORDERED: morphine SULFATE 4 MG/ML VIAL ONE (18:32)
[2022-11-12 19:39] VITALS: BP 121/93; PULSE 70
[2022-11-12] MEDS ORDERED: LIDOCAINE 5% TOPICAL PATCH TP ONE (19:58)
[2022-11-12] MEDS ORDERED: LIDOCAINE 5% TOPICAL PATCH ONE (20:03)
[2022-11-12] MEDS ORDERED: LIDOCAINE PATCH REMOVAL MC SCH (22:00)
== END 2022-11-12 20:14 | disposition admitted as inpatient to this hospital (09) ==
LOC: JER 10:52
PROC: 3E0333Z Introduction of Anti-inflammatory into Peripheral Vein, Percutaneous Approach (ICD-10-PCS; principal; 2022-11-12)
PROC: 3E033GC Introduction of Other Therapeutic Substance into Peripheral Vein, Percutaneous Approach (ICD-10-PCS; 2022-11-12)
DX: R07.89 Other chest pain (principal); R10.13 Epigastric pain; W22.8XXA Striking against or struck by other objects, initial encounter; Z20.822 Contact with and (suspected) exposure to COVID-19
CPT/HCPCS: 0241U-QW; 36415; 71045-TC-FY; 74177-TC; 80053; 83690; 84484; 85025; 93005; 93010; 99285-25; Q9967

== ENCOUNTER 2025-01-03 19:31 | Emergency (ER) | payer BC ==
[2025-01-03 19:41] VITALS: BP 130/81; PULSE 91; RESP 18; TEMP 98.1; BMI 34.7
[2025-01-03] MEDS ORDERED: DIPHTH,PERTUSS(ACELL),TET 0.5 ML DISP.SYRIN IM ONE (20:20)
[2025-01-03] MEDS ORDERED: BACITRACIN ZINC 15 GM TUBE TOPICAL OINTMENT ONE (20:25)
[2025-01-03] MEDS: DIPHTH,PERTUSS(ACELL),TET 0.5 ML DISP.SYRIN IM ONE (20:31)
[2025-01-03] MEDS: BACITRACIN ZINC 15 GM TUBE TOPICAL OINTMENT TP ONE (20:33)
== END 2025-01-03 20:34 | disposition home or self-care (01) ==
LOC: JER 19:31
PROC: 3E0234Z Introduction of Serum, Toxoid and Vaccine into Muscle, Percutaneous Approach (ICD-10-PCS; principal; 2025-01-03)
DX: S50.811A Abrasion of right forearm, initial encounter (principal); Z23 Encounter for immunization; W54.0XXA Bitten by dog, initial encounter
CPT/HCPCS: 90715; 99284-25